=== PATIENT | male | born 1985 ===

== ENCOUNTER 2023-01-22 07:51 | Outpatient (CLI) | payer OTHER | END 2023-01-22 07:52 | disposition home or self-care (01) | LOC: NM 07:51 | PROVIDERS: ATTEND Internal Medicine Endocrinology, Diabetes & Metabolism | DX: E03.9 Hypothyroidism, unspecified (principal) | CPT/HCPCS: 78014; A9516 ==

== ENCOUNTER 2023-03-12 12:53 | Outpatient (CLI) | payer OTHER | END 2023-03-12 12:54 | disposition home or self-care (01) | LOC: NM 12:53 | PROVIDERS: ATTEND Internal Medicine Endocrinology, Diabetes & Metabolism | DX: E03.9 Hypothyroidism, unspecified (principal) | CPT/HCPCS: 79005; A9517 ==